=== PATIENT | male | born 1965 | race Caucasian/White ===

== ENCOUNTER 2016-12-21 17:09 | Emergency (ER) | payer OTHER ==
--- NOTE | 2016-12-21 19:14 | ED ORDER SUMMARY ---
..... Patient: MARY ALICE ROJAS OrderSheet [facility] VisitID: [id number] [address] [place] [address] 51y, M Registration Date/Time: 12/21/2016 ORDER SHEET Weight: 99.7 kg (stated) Allergies: Penicillins GENERAL ORDERS: Lumbar Spine 2 or 3V Urgent (17:54 12/21/2016 Patrick Shah) (Ack 18:06 Kermit) (18:14 Kermit) MEDICATION ORDERS: Percocet PO 5/325 mg (HIGH ALERT MEDICATION, NOW) (17:53 12/21/2016 Patrick Shah) (Ack 18:08 DDean R.N.) (18:48 DDean R.N.) Toradol IM 60 mg (NOW) (17:53 12/21/2016 Patrick Shah) (Ack 18:08 DDean R.N.) (18:48 DDean R.N.) Dilaudid IM 1 mg (HIGH ALERT MEDICATION, NOW) (19:13 12/21/2016 Patrick Shah) (19:18 DDean R.N.) IV FLUIDS: ORDER SHEET NOTES: [Electronically signed by Negar Jackson R.N. (21:04 12/21/2016)] [Electronically signed by Bryce Chris Dr. (11:49 12/24/2016)] [Electronically locked/signed by Negar Jackson R.N. (21:04 12/21/2016)]
--- NOTE | 2016-12-21 19:14 | ED ORDER SUMMARY ---
..... Patient: MARY ALICE ROJAS OrderSheet [facility] VisitID: [id number] [address] [place] [address] 51y, M Registration Date/Time: 12/21/2016 ORDER SHEET Weight: 99.7 kg (stated) Allergies: Penicillins GENERAL ORDERS: Lumbar Spine 2 or 3V Urgent (17:54 12/21/2016 Patrick Shah) (Ack 18:06 Kermit) (18:14 Kermit) MEDICATION ORDERS: Percocet PO 5/325 mg (HIGH ALERT MEDICATION, NOW) (17:53 12/21/2016 Patrick Shah) (Ack 18:08 DDean R.N.) (18:48 DDean R.N.) Toradol IM 60 mg (NOW) (17:53 12/21/2016 Patrick Shah) (Ack 18:08 DDean R.N.) (18:48 DDean R.N.) Dilaudid IM 1 mg (HIGH ALERT MEDICATION, NOW) (19:13 12/21/2016 Patrick Shah) (19:18 DDean R.N.) IV FLUIDS: ORDER SHEET NOTES: [Electronically signed by Negar Jackson R.N. (21:04 12/21/2016)] [Electronically signed by Bryce Chris Dr. (11:49 12/24/2016)] [Electronically locked/signed by Negar Jackson R.N. (21:04 12/21/2016)]
--- NOTE | 2016-12-21 19:14 | ED NURSING NOTES ---
Clinical Report - Nurses [facility] [address] [place] [address] 12/21/2016 17:10 Patient: MARY ALICE ROJAS TRIAGE Triage time 1725. Acuity: LEVEL 3. Chief Complaint: BACK PAIN and (LBP going up to middle of back). JERROD COMA SCORE: [place] Coma Scale: 15- eyes open spontaneously (4); best verbal response- oriented x 4 (5); best motor response- obeys commands (6). --17:31 Negar Jackson R.N. 17:20 12/21/16. BP: 146/89. HR: 87. RR: 18. O2 saturation: 98%. Temp: 98.4 F. Pain level now: 05/31. --17:31 Negar Jackson R.N. Weight: 99.7 kg stated. Height/Length: 69 inches Per Patient. BMI: 32.5. --17:24 Negar Jackson R.N. Medications Vanecapril 20mg daily . --17:30 Negar Jackson R.N. AmLODIPine Besylate Oral 10 mg, daily. --17:30 Negar Jackson R.N. Omeprazole Oral 20 mg, daily. --17:30 Negar Jackson R.N. tylenol 975mg at 12 noon. --17:31 Negar Jackson R.N. Allergies Penicillins. --17:30 Negar Jackson R.N. History Arrived by private vehicle. Historian: patient. Accompanied by spouse. No primary care physician. Onset. (onset thursday after doing a "stand kick in martial arts class). He has had trouble walking. ( walking bent over, difficulty sleeping and sitting). No numbness, weakness or extremity pain. PAST MEDICAL HX: Hypertension. SOCIAL HX: Never smoker. Occasional alcohol use. No drug use. --17:31 Negar Jackson R.N. ADDITIONAL SURGERIES: Tonsillectomy. --17:28 Negar Jackson R.N. Interventions ID band on patient. To treatment room. --17:31 Negar Jackson R.N. PHYSICAL ASSESSMENT 17:25. Ambulatory to room. Patient gowned. GENERAL / NEURO / PSYCH: Alert. Oriented X 4. Appears in pain. RESPIRATORY: Respirations not labored. CVS: Capillary refill less than 2 seconds. GI / : Abdomen soft. EXTREMITIES: ROM of extremities within normal limits. BACK: Limited ROM of the back. Soft tissue tenderness. --17:29 Negar Jackson R.N. NURSING PROGRESS NOTES 17:25. Cold pack applied. Patient gowned. Head of bed elevated. Reassurance given. Patient identifiers checked. Call light placed in reach. Side rails up. Bed placed in lowest position. Patient ready for evaluation- chart flagged. --17:29 Negar Jackson R.N. 17:40. Patient ID band checked for patient name and birthdate. Clean catch urine collected with return of yellow-colored clear urine; sample sent to lab. Specimen labeled in the presence of the patient. --18:14 Negar Jackson R.N. 18:00. Patient transported to radiology by stretcher with tech. --18:15 Negar Jackson R.N. 18:12. Patient returned from radiology by stretcher with tech. --18:15 Negar Jackson R.N. 18:37 12/21/2016 Percocet (Oxycodone-Acetaminophen) PO 5/325 mg Tablets 1 tab given. Allergies verified, confirmed 5 rights and sedative warning given to the patient. --18:48 Negar Jackson R.N. 18:38 12/21/2016 Toradol (Ketorolac Tromethamine) IM 60 mg given. Given in the left ventral gluteus. --18:48 Negar Jackson R.N. 19:08 12/21/2016 Dilaudid (HYDROmorphone HCl PF) IM 1 mg given. Given in the right ventral gluteus. --19:18 Negar Jackson R.N. 19:05. Reassessment after medication administered. Overall patient status (only slight improvement after tordol and po meds, ERMDF notified, additional meds ordered and given). --19:34 Negar Jackson R.N. DISPOSITION / DISCHARGE 19:15. Condition at departure: improved and stable. No learning barriers present. Discharge instructions provided and reviewed with the patient. Reviewed medication(s) (motrin, percocet, flexeril). Patient verbalized understanding. Written instructions provided in Nepalese. The patient was discharged home and accompanied by spouse. He left the Emergency Department ambulatory and via private vehicle. Spouse driving. --21:03 Negar Jackson R.N. 19:15 12/21/16. BP: 140/82. HR: 84. RR: 20. O2 saturation: 100%. Temp: 98.6 F. Pain level now: 04/30. --21:03 Negar Jackson R.N. Locked/Released at 12/21/2016 21:04 by Negar Jackson R.N.
--- NOTE | 2016-12-21 19:14 | ED CLINICAL REPORT ---
Clinical Report - Physicians/Mid Levels [facility] [address] [place] [address] 12/21/2016 17:10 Patient: MARY ALICE ROJAS Time Seen: 1742. Arrived- By private vehicle. Historian- patient. HISTORY OF PRESENT ILLNESS Chief Complaint: BACK INJURY and BACK PAIN. It is described as being severe and in the area of the right mid lumbar spine and right lower lumbar spine. The quality is noted to be aching. No radiation. Modifying factors. (orse with movement. Better with rest). Onset was today and it is still present. It was abrupt in onset and has been constant but is not gone now. No bladder dysfunction, bowel dysfunction, sensory loss or motor loss. Additional history - no history of IV drug use. No saddle anesthesia. No incontinence. No urinary retention. 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 patient reports no pain or injury to any other part of his body including his head, neck, chest, abdomen, pelvis, or other extremities. Patient notes an injury but denies injury to the head or neck. Mechanism of injury- (jump kick). (dojo). No other injury. Similar symptoms previously: None. Recent medical care: Not recently seen/assessed. REVIEW OF SYSTEMS No fever, chills, headache, nausea or vomiting. All systems otherwise negative, except as recorded above. PAST HISTORY See nurses notes. SOCIAL HISTORY Never smoker. No alcohol use or drug use. No recent travel. Is a local resident. ADDITIONAL NOTES The nursing notes have been reviewed. PHYSICAL EXAM Vital Signs: 12/21/2016 17:20 BP: 146/89. HR: 87. RR: 18. O2 saturation: 98%. Temp: 98.4 F. Pain level now: 9/10. Blood pressure normal. Oxygen saturation normal. Appearance: Alert. Patient in mild distress. (nontoxic. Cooperative, pleasant). HEENT: Normal external inspection. Eyes: Pupils equal, round and reactive to light. ENT: Ears normal. Pharynx normal. Neck: Normal inspection. Neck nontender. Painless ROM. CVS: Heart sounds normal. Pulses normal. Respiratory: No respiratory distress. Breath sounds normal. Abdomen: No visible injury. Soft and nontender. Bowel sounds normal. Back: Normal inspection. No tenderness. Painless ROM. Skin: Skin warm and dry. Normal skin color. No rash. Normal skin turgor. Extremities: Extremities exhibit normal ROM. Extremities nontender. Neuro: Oriented X 3. Mood/affect normal. No motor deficit. No sensory deficit. LABS, X-RAYS, AND EKG LS-Spine X-rays: (PROCEDURE: XR LUMBAR SPINE 2 OR 3 VIEWS INDICATION: PAIN AFTER DURING A JUMPING KICK AT [employer] TECHNIQUE: Three views. COMPARISON: None. FINDINGS: There are mild degenerative changes of the lower lumbar facet joints. Osseous structures and disc spaces are otherwise normal. No evidence of an acute process or fracture. Densities overlying the right lateral abdomen may represent a pill fragments. IMPRESSION: 1. Mild degenerative changes.). Views: AP, lateral and obliques. The X-rays were independently viewed by me and interpreted by the radiologist. The X-rays were discussed with the radiologist (via PACS). A comparison with prior films was not made. PROGRESS AND PROCEDURES Course of Care: the patient is a pleasant 51-year-old male presenting for evaluation of back pain. Patient reports doing a jumpkick and had acute onset ofright lower back pain. No neurovascular compromise noted on examination. Patient is in a mild amain medication as been ordered. Patient is agreeable to the treatment and plan. Because of the patient's mechanism of injury, radiographs of the back will be ordered. Patient was reevaluated and found to have no significant improvement with his pain. We'll provide patient with additional pain medication. X-ray results do not indicate any acute fractures or dislocations. Mild degenerative changes notent was informed of the findings on x-ray. Patient is noted to have improvement with his pain however did not completely resolve. Patient reports he is feeling much more comfortable and wouldtheagreeable with outpatient management. I discussion with patient in regards to back pain as well as time course and natural progressionalso discussed the patient's workup here in the emergency department including diagnosis, home care, follow-up, return precautions All questions have been answered. The patient expressed understanding of these instructions and was agreeable to them. Prior to patient's departure in the emergency department he was noted to have a intact neurological examination. Patient with antalgic gait however is able to ambulate without assistance. Do not feel patient is admitted to the hospital require further emergency department workup/evaluation. Disposition: Discharged. Condition: good. CLINICAL IMPRESSION Acute nontraumatic lumbar back pain associated with sprain. (right). INSTRUCTIONS Warnings: GENERAL WARNINGS: Return or contact your physician immediately if your condition worsens or changes unexpectedly, if not improving as expected, or if other problems arise. SPECIFICALLY, return if you develop weakness, numbness, tingling, pain or incontinence. fever or other concerns. Your Current Medications: CONTINUE TAKING THE FOLLOWING MEDICATIONS: AmLODIPine Besylate Oral : 10 mg daily. Omeprazole Oral : 20 mg daily. tylenol 975mg at 12 noon*. Vanecapril 20mg daily *. Prescription Medications: Motrin 600 mg tablets: take 1 tablet orally every 6 hours as needed for pain, stiffness or swelling. Dispense thirty (30). No refill. Substitution is permissible. (take with food) Percocet 5 mg/325 mg: take 1 tablet orally every 6 hours as needed for pain. Dispense twelve (12). No refill. Substitution is permissible. Flexeril 10 mg: take 1 orally every 8 hours as needed for muscle spasm or pain. Dispense twenty (20). No refills. Substitution is permissible. Follow-up: Return to the emergency department as needed. Follow up with your doctor in three days. Reason for referral: recheck today's concerns. Summary of care provided to patient via paper. Screening today revealed the patient's blood pressure to be in the normal range. The patient should follow up with a primary care provider for blood pressure management. Understanding of the discharge instructions verbalized by patient. Follow-up with: [facility], , , [address], , [place], [address] Follow up in three. Reason for referral: contact if you can not find a primary care doctor. Summary of care provided to patient via paper. (Electronically signed by Bryce Chris Dr. 12/24/2016 11:49)
--- NOTE | 2016-12-21 19:14 | ED CLINICAL REPORT ---
Clinical Report - Physicians/Mid Levels [facility] [address] [address] 12/21/2016 17:10 Patient: MARY ALICE ROJAS Time Seen: 1742. Arrived- By private vehicle. Historian- patient. HISTORY OF PRESENT ILLNESS Chief Complaint: BACK INJURY and BACK PAIN. It is described as being severe and in the area of the right mid lumbar spine and right lower lumbar spine. The quality is noted to be aching. No radiation. Modifying factors. (orse with movement. Better with rest). Onset was today and it is still present. It was abrupt in onset and has been constant but is not gone now. No bladder dysfunction, bowel dysfunction, sensory loss or motor loss. Additional history - no history of IV drug use. No saddle anesthesia. No incontinence. No urinary retention. 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 patient reports no pain or injury to any other part of his body including his head, neck, chest, abdomen, pelvis, or other extremities. Patient notes an injury but denies injury to the head or neck. Mechanism of injury- (jump kick). (dojo). No other injury. Similar symptoms previously: None. Recent medical care: Not recently seen/assessed. REVIEW OF SYSTEMS No fever, chills, headache, nausea or vomiting. All systems otherwise negative, except as recorded above. PAST HISTORY See nurses notes. SOCIAL HISTORY Never smoker. No alcohol use or drug use. No recent travel. Is a local resident. ADDITIONAL NOTES The nursing notes have been reviewed. PHYSICAL EXAM Vital Signs: 12/21/2016 17:20 BP: 146/89. HR: 87. RR: 18. O2 saturation: 98%. Temp: 98.4 F. Pain level now: 9/10. Blood pressure normal. Oxygen saturation normal. Appearance: Alert. Patient in mild distress. (nontoxic. Cooperative, pleasant). HEENT: Normal external inspection. Eyes: Pupils equal, round and reactive to light. ENT: Ears normal. Pharynx normal. Neck: Normal inspection. Neck nontender. Painless ROM. CVS: Heart sounds normal. Pulses normal. Respiratory: No respiratory distress. Breath sounds normal. Abdomen: No visible injury. Soft and nontender. Bowel sounds normal. Back: Normal inspection. No tenderness. Painless ROM. Skin: Skin warm and dry. Normal skin color. No rash. Normal skin turgor. Extremities: Extremities exhibit normal ROM. Extremities nontender. Neuro: Oriented X 3. Mood/affect normal. No motor deficit. No sensory deficit. LABS, X-RAYS, AND EKG LS-Spine X-rays: (PROCEDURE: XR LUMBAR SPINE 2 OR 3 VIEWS INDICATION: PAIN AFTER DURING A JUMPING KICK AT [employer] TECHNIQUE: Three views. COMPARISON: None. FINDINGS: There are mild degenerative changes of the lower lumbar facet joints. Osseous structures and disc spaces are otherwise normal. No evidence of an acute process or fracture. Densities overlying the right lateral abdomen may represent a pill fragments. IMPRESSION: 1. Mild degenerative changes.). Views: AP, lateral and obliques. The X-rays were independently viewed by me and interpreted by the radiologist. The X-rays were discussed with the radiologist (via PACS). A comparison with prior films was not made. PROGRESS AND PROCEDURES Course of Care: the patient is a pleasant 51-year-old male presenting for evaluation of back pain. Patient reports doing a jumpkick and had acute onset ofright lower back pain. No neurovascular compromise noted on examination. Patient is in a mild amain medication as been ordered. Patient is agreeable to the treatment and plan. Because of the patient's mechanism of injury, radiographs of the back will be ordered. Patient was reevaluated and found to have no significant improvement with his pain. We'll provide patient with additional pain medication. X-ray results do not indicate any acute fractures or dislocations. Mild degenerative changes notent was informed of the findings on x-ray. Patient is noted to have improvement with his pain however did not completely resolve. Patient reports he is feeling much more comfortable and wouldtheagreeable with outpatient management. I discussion with patient in regards to back pain as well as time course and natural progressionalso discussed the patient's workup here in the emergency department including diagnosis, home care, follow-up, return precautions All questions have been answered. The patient expressed understanding of these instructions and was agreeable to them. Prior to patient's departure in the emergency department he was noted to have a intact neurological examination. Patient with antalgic gait however is able to ambulate without assistance. Do not feel patient is admitted to the hospital require further emergency department workup/evaluation. Disposition: Discharged. Condition: good. CLINICAL IMPRESSION Acute nontraumatic lumbar back pain associated with sprain. (right). INSTRUCTIONS Warnings: GENERAL WARNINGS: Return or contact your physician immediately if your condition worsens or changes unexpectedly, if not improving as expected, or if other problems arise. SPECIFICALLY, return if you develop weakness, numbness, tingling, pain or incontinence. fever or other concerns. Your Current Medications: CONTINUE TAKING THE FOLLOWING MEDICATIONS: AmLODIPine Besylate Oral : 10 mg daily. Omeprazole Oral : 20 mg daily. tylenol 975mg at 12 noon*. Vanecapril 20mg daily *. Prescription Medications: Motrin 600 mg tablets: take 1 tablet orally every 6 hours as needed for pain, stiffness or swelling. Dispense thirty (30). No refill. Substitution is permissible. (take with food) Percocet 5 mg/325 mg: take 1 tablet orally every 6 hours as needed for pain. Dispense twelve (12). No refill. Substitution is permissible. Flexeril 10 mg: take 1 orally every 8 hours as needed for muscle spasm or pain. Dispense twenty (20). No refills. Substitution is permissible. Follow-up: Return to the emergency department as needed. Follow up with your doctor in three days. Reason for referral: recheck today's concerns. Summary of care provided to patient via paper. Screening today revealed the patient's blood pressure to be in the normal range. The patient should follow up with a primary care provider for blood pressure management. Understanding of the discharge instructions verbalized by patient. Follow-up with: [facility], , , [address], , [place], [address] Follow up in three. Reason for referral: contact if you can not find a primary care doctor. Summary of care provided to patient via paper. (Electronically signed by Bryce Chris Dr. 12/24/2016 11:49)
--- NOTE | 2016-12-21 19:35 | DIAGNOSTIC IMAGING REPORT ---
PROCEDURE: XR LUMBAR SPINE 2 OR 3 VIEWS INDICATION: PAIN AFTER DURING A JUMPING KICK AT [employer] TECHNIQUE: Three views. COMPARISON: None. FINDINGS: There are mild degenerative changes of the lower lumbar facet joints. Osseous structures and disc spaces are otherwise normal. No evidence of an acute process or fracture. Densities overlying the right lateral abdomen may represent a pill fragments. IMPRESSION: 1. Mild degenerative changes. 2. Otherwise negative lumbar spine.
--- NOTE | 2016-12-24 11:50 | ED MAR SUMMARY ---
..... Medication Administration Record [facility] [address] [place] [address] Patient: MARY ALICE ROJAS Visit ID: [id number] 51y, M Weight: 99.7 kg Height/Length: 69 in BMI: 32.5 ALLERGIES: Penicillins Given 18:37 12/21/2016 Negar Jackson R.N. Medication Administered: PERCOCET [PO] (OXYCODONE-ACETAMINOPHEN), Dose: 1 tab 5/325 mg Tablets PO. Medication Ordered: Percocet PO 5/325 mg (HIGH ALERT MEDICATION, NOW). Given 18:38 12/21/2016 Negar Jackson R.N. Medication Administered: TORADOL [IM] (KETOROLAC TROMETHAMINE), Dose: 60 mg IM. Medication Ordered: Toradol IM 60 mg (NOW). Given 19:08 12/21/2016 Negar Jackson R.N. Medication Administered: DILAUDID [IM] (HYDROMORPHONE HCL PF), Dose: 1 mg IM. Medication Ordered: Dilaudid IM 1 mg (HIGH ALERT MEDICATION, NOW).
--- NOTE | 2016-12-24 11:50 | ED DISCHARGE INSTRUCTIONS ---
Patient: MARY ALICE ROJAS General Instructions [facility] VisitID: [id number] [address] [place] [address] 51y, M Registration Date/Time: 12/21/2016 Acute nontraumatic lumbar back pain associated with sprain. (right). INSTRUCTIONS Warnings: GENERAL WARNINGS: Return or contact your physician immediately if your condition worsens or changes unexpectedly, if not improving as expected, or if other problems arise. SPECIFICALLY, return if you develop weakness, numbness, tingling, pain or incontinence. fever or other concerns. Your Current Medications: CONTINUE TAKING THE FOLLOWING MEDICATIONS: AmLODIPine Besylate Oral : 10 mg daily. Omeprazole Oral : 20 mg daily. tylenol 975mg at 12 noon*. Vanecapril 20mg daily *. Prescription Medications: Motrin 600 mg tablets: take 1 tablet orally every 6 hours as needed for pain, stiffness or swelling. Dispense thirty (30). No refill. Substitution is permissible. (take with food) Percocet 5 mg/325 mg: take 1 tablet orally every 6 hours as needed for pain. Dispense twelve (12). No refill. Substitution is permissible. Flexeril 10 mg: take 1 orally every 8 hours as needed for muscle spasm or pain. Dispense twenty (20). No refills. Substitution is permissible. Follow-up: Return to the emergency department as needed. Follow up with your doctor in three days. Reason for referral: recheck today's concerns. Summary of care provided to patient via paper. Screening today revealed the patient's blood pressure to be in the normal range. The patient should follow up with a primary care provider for blood pressure management. Understanding of the discharge instructions verbalized by patient. Follow-up with: [facility], , , [address], [place], [id number] Follow up in three. Reason for referral: contact if you can not find a primary care doctor. Summary of care provided to patient via paper. ADDITIONAL INFORMATION Back Pain [Acute Or Chronic] Back pain is usually caused by an injury to the muscles or ligaments of the spine. Sometimes the disks that separate each bone in the spine may bulge and cause pain by pressing on a nearby nerve. Back pain may also appear after a sudden twisting/bending force (such as in a car accident), after a simple awkward movement, or lifting something heavy with poor body positioning. In either case, muscle spasm is often present and adds to the pain. Acute back pain usually gets better in one to two weeks. Back pain related to disk disease, arthritis in the spinal joints or spinal stenosis (narrowing of the spinal canal) can become chronic and last for months or years. Unless you had a physical injury (for example, a car accident or fall) X-rays are usually not ordered for the initial evaluation of back pain. If pain continues and does not respond to medical treatment, x-rays and other tests may be performed at a later time. Home Care: You may need to stay in bed the first few days. But, as soon as possible, begin sitting or walking to avoid problems with prolonged bed rest (muscle weakness, worsening back stiffness and pain, blood clots in the legs). When in bed, try to find a position of comfort. A firm mattress is best. Try lying flat on your back with pillows under your knees. You can also try lying on your side with your knees bent up towards your chest and a pillow between your knees. Avoid prolonged sitting. This puts more stress on the lower back than standing or walking. During the first two days after injury, apply an ICE PACK to the painful area for 20 minutes every 2-4 hours. This will reduce swelling and pain. HEAT (hot shower, hot bath or heating pad) works well for muscle spasm. You can start with ice, then switch to heat after two days. Some patients feel best alternating ice and heat treatments. Use the one method that feels the best to you. You may use acetaminophen (Tylenol) or ibuprofen (Motrin, Advil) to control pain, unless another pain medicine was prescribed. [NOTE: If you have chronic liver or kidney disease or ever had a stomach ulcer or GI bleeding, talk with your doctor before using these medicines.] Be aware of safe lifting methods and do not lift anything over 15 pounds until all the pain is gone. Follow Up with your doctor or this facility if your symptoms do not start to improve after one week. Physical therapy may be needed. [NOTE: If X-rays were taken, they will be reviewed by a radiologist. You will be notified of any new findings that may affect your care.] Get Prompt Medical Attention if any of the following occur: Pain becomes worse or spreads to your legs Weakness or numbness in one or both legs Loss of bowel or bladder control Numbness in the groin or genital area Ibuprofen Oral tablet What is this medicine? IBUPROFEN (eye BYOO proe fen) is a non-steroidal anti-inflammatory drug (NSAID). It is used for dental pain, fever, headaches or migraines, osteoarthritis, rheumatoid arthritis, or painful monthly periods. It can also relieve minor aches and pains caused by a cold, flu, or sore throat. How should I use this medicine? Take this medicine by mouth with a glass of water. Follow the directions on the prescription label. Take this medicine with food if your stomach gets upset. Try to not lie down for at least 10 minutes after you take the medicine. Take your medicine at regular intervals. Do not take your medicine more often than directed. A special MedGuide will be given to you by the pharmacist with each prescription and refill. Be sure to read this information carefully each time. Talk to your sharepoint application architect regarding the use of this medicine in children. Special care may be needed. What side effects may I notice from receiving this medicine? Side effects that you should report to your doctor or health medical care administrator as soon as possible: allergic reactions like skin rash, itching or hives, swelling of the face, lips, or tongue black or bloody stools, blood in the urine or in vomit breathing problems changes in vision chest pain general ill feeling or flu-like symptoms nausea or vomiting redness, blistering, peeling or loosening of the skin, including inside the mouth slurred speech or weakness on one side of the body stomach pain unexplained weight gain or swelling unusually weak or tired yellowing of eyes or skin Side effects that usually do not require medical attention (report to your doctor or health medical care administrator if they continue or are bothersome): constipation or diarrhea dizziness gas or heartburn stomach upset What may interact with this medicine? Do not take this medicine with any of the following medications: cidofovir ketorolac methotrexate pemetrexed This medicine may also interact with the following medications: alcohol aspirin diuretics lithium other drugs for inflammation like prednisone warfarin What if I miss a dose? If you miss a dose, take it as soon as you can. If it is almost time for your next dose, take only that dose. Do not take double or extra doses. Where should I keep my medicine? Keep out of the reach of children. Store at room temperature between 15 and 30 degrees C (59 and 86 degrees F). Keep container tightly closed. Throw away any unused medicine after the expiration date. What should I tell my health care provider before I take this medicine? They need to know if you have any of these conditions: asthma cigarette smoker drink more than 3 alcohol containing drinks a day heart disease or circulation problems such as heart failure or leg edema (fluid retention) high blood pressure kidney disease liver disease stomach bleeding or ulcers an unusual or allergic reaction to ibuprofen, aspirin, other NSAIDS, other medicines, foods, dyes, or preservatives or trying to get breast-feeding What should I watch for while using this medicine? Tell your doctor or healthcare professional if your symptoms do not start to get better or if they get worse. This medicine does not prevent heart attack or stroke. In fact, this medicine may increase the chance of a heart attack or stroke. The chance may increase with longer use of this medicine and in people who have heart disease. If you take aspirin to prevent heart attack or stroke, talk with your doctor or health medical care administrator. Do not take other medicines that contain aspirin, ibuprofen, or naproxen with this medicine. Side effects such as stomach upset, nausea, or ulcers may be more likely to occur. Many medicines available without a prescription should not be taken with this medicine. This medicine can cause ulcers and bleeding in the stomach and intestines at any time during treatment. Ulcers and bleeding can happen without warning symptoms and can cause . To reduce your risk, do not smoke cigarettes or drink alcohol while you are taking this medicine. You may get drowsy or dizzy. Do not drive, use machinery, or do anything that needs mental alertness until you know how this medicine affects you. Do not stand or sit up quickly, especially if you are an older patient. This reduces the risk of dizzy or fainting spells. This medicine can cause you to bleed more easily. Try to avoid damage to your teeth and gums when you brush or floss your teeth. Oxycodone Hydrochloride, Acetaminophen Oral tablet What is this medicine? ACETAMINOPHEN; OXYCODONE (a set a RUFINA justyn fen; ox i KOE done) is a pain reliever. It is used to treat mild to moderate pain. How should I use this medicine? Take this medicine by mouth with a full glass of water. Follow the directions on the prescription label. Take your medicine at regular intervals. Do not take your medicine more often than directed. Talk to your sharepoint application architect regarding the use of this medicine in children. Special care may be needed. Patients over 65 years old may have a stronger reaction and need a smaller dose. What side effects may I notice from receiving this medicine? Side effects that you should report to your doctor or health medical care administrator as soon as possible: allergic reactions like skin rash, itching or hives, swelling of the face, lips, or tongue breathing difficulties, wheezing confusion light headedness or fainting spells severe stomach pain yellowing of the skin or the whites of the eyes Side effects that usually do not require medical attention (report to your doctor or health medical care administrator if they continue or are bothersome): dizziness drowsiness nausea vomiting What may interact with this medicine? alcohol antihistamines barbiturates like amobarbital, butalbital, butabarbital, methohexital, pentobarbital, phenobarbital, thiopental, and secobarbital benztropine drugs for bladder problems like solifenacin, trospium, oxybutynin, tolterodine, hyoscyamine, and methscopolamine drugs for breathing problems like ipratropium and tiotropium drugs for certain stomach or intestine problems like propantheline, homatropine methylbromide, glycopyrrolate, atropine, belladonna, and dicyclomine general anesthetics like etomidate, ketamine, nitrous oxide, propofol, desflurane, enflurane, halothane, isoflurane, and sevoflurane medicines for depression, anxiety, or psychotic disturbances medicines for sleep muscle relaxants naltrexone narcotic medicines (opiates) for pain phenothiazines like perphenazine, thioridazine, chlorpromazine, mesoridazine, fluphenazine, prochlorperazine, promazine, and trifluoperazine scopolamine tramadol trihexyphenidyl What if I miss a dose? If you miss a dose, take it as soon as you can. If it is almost time for your next dose, take only that dose. Do not take double or extra doses. Where should I keep my medicine? Keep out of the reach of children. This medicine can be abused. Keep your medicine in a safe place to protect it from theft. Do not share this medicine with anyone. Selling or giving away this medicine is dangerous and against the law. Store at room temperature between 20 and 25 degrees C (68 and 77 degrees F). Keep container tightly closed. Protect from light. This medicine may cause accidental overdose and if it is taken by other adults, children, or pets. Flush any unused medicine down the toilet to reduce the chance of harm. Do not use the medicine after the expiration date. What should I tell my health care provider before I take this medicine? They need to know if you have any of these conditions: brain tumor Crohn's disease, inflammatory bowel disease, or ulcerative colitis drink more than 3 alcohol containing drinks per day drug abuse or addiction head injury heart or circulation problems kidney disease or problems going to the bathroom liver disease lung disease, asthma, or breathing problems an unusual or allergic reaction to acetaminophen, oxycodone, other opioid analgesics, other medicines, foods, dyes, or preservatives or trying to get breast-feeding What should I watch for while using this medicine? Tell your doctor or health medical care administrator if your pain does not go away, if it gets worse, or if you have new or a different type of pain. You may develop tolerance to the medicine. Tolerance means that you will need a higher dose of the medication for pain relief. Tolerance is normal and is expected if you take this medicine for a long time. Do not suddenly stop taking your medicine because you may develop a severe reaction. Your body becomes used to the medicine. This does NOT mean you are addicted. Addiction is a behavior related to getting and using a drug for a non-medical reason. If you have pain, you have a medical reason to take pain medicine. Your doctor will tell you how much medicine to take. If your doctor wants you to stop the medicine, the dose will be slowly lowered over time to avoid any side effects. You may get drowsy or dizzy. Do not drive, use machinery, or do anything that needs mental alertness until you know how this medicine affects you. Do not stand or sit up quickly, especially if you are an older patient. This reduces the risk of dizzy or fainting spells. Alcohol may interfere with the effect of this medicine. Avoid alcoholic drinks. There are different types of narcotic medicines (opiates) for pain. If you take more than one type at the same time, you may have more side effects. Give your health care provider a list of all medicines you use. Your doctor will tell you how much medicine to take. Do not take more medicine than directed. Call emergency for help if you have problems breathing. The medicine will cause constipation. Try to have a bowel movement at least every 2 to 3 days. If you do not have a bowel movement for 3 days, call your doctor or health medical care administrator. Do not take Tylenol (acetaminophen) or medicines that have acetaminophen with this medicine. Too much acetaminophen can be very dangerous. Many nonprescription medicines contain acetaminophen. Always read the labels carefully to avoid taking more acetaminophen. Cyclobenzaprine Hydrochloride Oral tablet What is this medicine? CYCLOBENZAPRINE (syrajendra ocampo preen) is a muscle relaxer. It is used to treat muscle pain, spasms, and stiffness. How should I use this medicine? Take this medicine by mouth with a glass of water. Follow the directions on the prescription label. If this medicine upsets your stomach, take it with food or milk. Take your medicine at regular intervals. Do not take it more often than directed. Talk to your sharepoint application architect regarding the use of this medicine in children. Special care may be needed. What side effects may I notice from receiving this medicine? Side effects that you should report to your doctor or health medical care administrator as soon as possible: allergic reactions like skin rash, itching or hives, swelling of the face, lips, or tongue chest pain fast heartbeat hallucinations seizures vomiting Side effects that usually do not require medical attention (report to your doctor or health medical care administrator if they continue or are bothersome): headache What may interact with this medicine? Do not take this medicine with any of the following medications: cisapride droperidol flecainide grepafloxacin halofantrine levomethadyl MAOIs like Carbex, Eldepryl, Marplan, Nardil, and Parnate nilotinib pimozide probucol sertindole This medicine may also interact with the following medications: abarelix alcohol contrast dyes dolasetron guanethidine medicines for cancer medicines for depression, anxiety, or psychotic disturbances medicines to treat an irregular heartbeat medicines used for sleep or numbness during surgery or procedure methadone octreotide ondansetron palonosetron phenothiazines like chlorpromazine, mesoridazine, prochlorperazine, thioridazine some medicines for infection like alfuzosin, chloroquine, clarithromycin, levofloxacin, mefloquine, pentamidine, troleandomycin tramadol vardenafil What if I miss a dose? If you miss a dose, take it as soon as you can. If it is almost time for your next dose, take only that dose. Do not take double or extra doses. Where should I keep my medicine? Keep out of the reach of children. Store at room temperature between 15 and 30 degrees C (59 and 86 degrees F). Keep container tightly closed. Throw away any unused medicine after the expiration date. What should I tell my health care provider before I take this medicine? They need to know if you have any of these conditions: heart disease, irregular heartbeat, or previous heart attack liver disease thyroid problem an unusual or allergic reaction to cyclobenzaprine, tricyclic antidepressants, lactose, other medicines, foods, dyes, or preservatives or trying to get breast-feeding What should I watch for while using this medicine? Check with your doctor or health medical care administrator if your condition does not improve within 1 to 3 weeks. You may get drowsy or dizzy when you first start taking the medicine or change doses. Do not drive, use machinery, or do anything that may be dangerous until you know how the medicine affects you. Stand or sit up slowly. Your mouth may get dry. Drinking water, chewing sugarless gum, or sucking on hard candy may help. You have been given the following additional information: Back Pain (Acute Or Chronic) Ibuprofen Oral tablet Oxycodone Hydrochloride, Acetaminophen Oral tablet Cyclobenzaprine Hydrochloride Oral tablet (Electronically signed by Bryce Chris Dr. 12/24/2016 11:49)
--- NOTE | 2016-12-24 11:50 | ED MAR SUMMARY ---
..... Medication Administration Record [facility] [address] [place] [address] Patient: MARY ALICE ROJAS Visit ID: [id number] 51y, M Weight: 99.7 kg Height/Length: 69 in BMI: 32.5 ALLERGIES: Penicillins Given 18:37 12/21/2016 Negar Jackson R.N. Medication Administered: PERCOCET [PO] (OXYCODONE-ACETAMINOPHEN), Dose: 1 tab 5/325 mg Tablets PO. Medication Ordered: Percocet PO 5/325 mg (HIGH ALERT MEDICATION, NOW). Given 18:38 12/21/2016 Negar Jackson R.N. Medication Administered: TORADOL [IM] (KETOROLAC TROMETHAMINE), Dose: 60 mg IM. Medication Ordered: Toradol IM 60 mg (NOW). Given 19:08 12/21/2016 Negar Jackson R.N. Medication Administered: DILAUDID [IM] (HYDROMORPHONE HCL PF), Dose: 1 mg IM. Medication Ordered: Dilaudid IM 1 mg (HIGH ALERT MEDICATION, NOW).
--- NOTE | 2016-12-24 11:50 | ED MED RECONCILIATION SUMMARY ---
Patient: MARY ALICE ROJAS Medication Reconciliation Report [facility] VisitID: [id number] [address] [place] [address] 51y, M Registration Date/Time: 12/21/2016 Weight: 99.7 kg Height/Length: 69 in. BMI: 32.5 ALLERGIES: Penicillins The patient's Home Medications are listed below: CONTINUE TAKING THE FOLLOWING MEDICATIONS: AmLODIPine Besylate Oral 10 mg, daily Omeprazole Oral 20 mg, daily tylenol 975mg at 12 noon Vanecapril 20mg daily The source(s) of the original Home Medication information: Not obtained. The following Medications were given to the patient in the Emergency Department: Toradol [IM] IM 60 mg, administered: 12/21/2016 6:38:00 PM Percocet [PO] PO 1 tab, administered: 12/21/2016 6:37:00 PM Dilaudid [IM] IM 1 mg, administered: 12/21/2016 7:08:00 PM The following Medications were prescribed to the patient: Motrin 600 mg tablets: take 1 tablet orally every 6 hours as needed for pain, stiffness or swelling. Dispense thirty (30). No refill. Substitution is permissible.(take with food) -- Bryce Chris Dr. Percocet 5 mg/325 mg: take 1 tablet orally every 6 hours as needed for pain. Dispense twelve (12). No refill. Substitution is permissible. -- Bryce Chris Dr. Flexeril 10 mg: take 1 orally every 8 hours as needed for muscle spasm or pain. Dispense twenty (20). No refills. Substitution is permissible. -- Bryce Chris Dr.
--- NOTE | 2016-12-24 11:50 | ED MED RECONCILIATION SUMMARY ---
Patient: MARY ALICE ROJAS Medication Reconciliation Report [facility] VisitID: [id number] [address] [place] [address] 51y, M Registration Date/Time: 12/21/2016 Weight: 99.7 kg Height/Length: 69 in. BMI: 32.5 ALLERGIES: Penicillins The patient's Home Medications are listed below: CONTINUE TAKING THE FOLLOWING MEDICATIONS: AmLODIPine Besylate Oral 10 mg, daily Omeprazole Oral 20 mg, daily tylenol 975mg at 12 noon Vanecapril 20mg daily The source(s) of the original Home Medication information: Not obtained. The following Medications were given to the patient in the Emergency Department: Toradol [IM] IM 60 mg, administered: 12/21/2016 6:38:00 PM Percocet [PO] PO 1 tab, administered: 12/21/2016 6:37:00 PM Dilaudid [IM] IM 1 mg, administered: 12/21/2016 7:08:00 PM The following Medications were prescribed to the patient: Motrin 600 mg tablets: take 1 tablet orally every 6 hours as needed for pain, stiffness or swelling. Dispense thirty (30). No refill. Substitution is permissible.(take with food) -- Bryce Chris Dr. Percocet 5 mg/325 mg: take 1 tablet orally every 6 hours as needed for pain. Dispense twelve (12). No refill. Substitution is permissible. -- Bryce Chris Dr. Flexeril 10 mg: take 1 orally every 8 hours as needed for muscle spasm or pain. Dispense twenty (20). No refills. Substitution is permissible. -- Bryce Chris Dr.
== END 2016-12-21 19:15 | disposition home or self-care (01) ==
LOC: ED SRH 17:09
DX: S33.5XXA Sprain of ligaments of lumbar spine, initial encounter (principal); X50.0XXA Overexertion from strenuous movement or load, initial encounter; Y93.75 Activity, martial arts; Y92.9 Unspecified place or not applicable; Y99.9 Unspecified external cause status; I10 Essential (primary) hypertension; Z88.0 Allergy status to penicillin; Z79.899 Other long term (current) drug therapy